=== PATIENT | female | born 1995 | race Caucasian/White ===

== ENCOUNTER → 2016-12-08 | Outpatient (CLI) | payer OTHER | LOC: LAB 16:06 | DX: Z02.1 Encounter for pre-employment examination (principal) | CPT/HCPCS: 86706 ==

== ENCOUNTER → 2021-06-15 | Outpatient (CLI) | payer BC ==
[~2021-06-15] MED LIST: MACROBID 100 M100 MG PO; PRENATAL VITAM1 EAC8 PO; TAMIFLU75 MG PO; ZOFRAN4 MG PO
== END ==
LOC: KOH-I 16:20
DX: M54.41 Lumbago with sciatica, right side (principal); M54.42 Lumbago with sciatica, left side
CPT/HCPCS: 72100

== ENCOUNTER 2021-06-29 09:50 | Emergency (ER) | payer BC ==
[2021-06-29 10:32] LABS: HEMOGLOBIN 13.7 gm/dl (12.3-15.3); RED BLOOD COUNT 4.56 M/UL (4.00-5.10); WHITE BLOOD COUNT 4.2 K/UL (4.5-11.0)
[2021-06-29 11:14] LABS: BUN/CREATININE RATIO 11 (0-10)
[2021-06-29] MEDS ORDERED: CIPRO500 MG PO (15:06)
== END 2021-06-29 15:12 | disposition home or self-care (01) ==
LOC: ER1 09:50
PROVIDERS: Emergency Medicine
DX: N39.0 Urinary tract infection, site not specified (principal)
CPT/HCPCS: 80053; 81001; 83690; 84703; 85025; 87040; 87086; 96374; 96375; 96376; 99284; J1956; J2270; J2405; Q9967

== ENCOUNTER → 2022-03-14 | Outpatient (CLI) | payer BC ==
[~2022-03-14] MED LIST changes: +CIPRO500 MG PO
[2022-03-14 17:42] LABS: RED BLOOD COUNT 4.26 M/UL (4.00-5.10); WHITE BLOOD COUNT 6.2 K/UL (4.5-11.0)
[2022-03-14 18:01] LABS: BUN/CREATININE RATIO 12 (0-10)
[2022-03-16 16:11] LABS: EBV AB VCA, IGG >600.0 U/mL (0.0-17.9); EBV AB VCA, IGM <36.0 U/mL (0.0-35.9); EBV NUCLEAR ANTIGEN AB, IGG >600.0 U/mL (0.0-17.9)
[2022-03-16 23:12] LABS: THYROGLOBULIN ANTIBODY 42.2 IU/mL (0.0-0.9); THYROID PEROXIDASE (TPO) AB 32 IU/mL (0-34)
== END ==
LOC: LAB 16:20
PROVIDERS: Family Medicine
DX: R42 Dizziness and giddiness (principal); R53.82 Chronic fatigue, unspecified; R76.8 Other specified abnormal immunological findings in serum
CPT/HCPCS: 36415; 80053; 82607; 83540; 83550; 83735; 84439; 84443; 84481; 85025; 86376; 86800

== ENCOUNTER → 2022-03-22 | Outpatient (CLI) | payer BC | LOC: LAB 11:58 | PROVIDERS: Family Medicine | DX: I73.00 Raynaud's syndrome without gangrene (principal); R53.83 Other fatigue | CPT/HCPCS: 86038 ==

== ENCOUNTER → 2022-03-29 | Outpatient (CLI) | payer BC | LOC: KOH-I 16:00 | DX: R76.8 Other specified abnormal immunological findings in serum (principal) | CPT/HCPCS: 76536 ==

== ENCOUNTER → 2022-04-21 | Outpatient (CLI) | payer BC ==
[2022-04-22 07:10] LABS: PROLACTIN 13.8 ng/mL (4.8-23.3); VITAMIN D, 25-HYDROXY 52.9 ng/mL (30.0-100.0)
== END ==
LOC: LAB 08:37
DX: E06.3 Autoimmune thyroiditis (principal)
CPT/HCPCS: 84146; 84439; 84443